=== PATIENT | male | born 1960 | race African-American/Black ===

== ENCOUNTER 2019-08-05 08:10 | Observation (INO) | payer MEDICARE ==
[2019-08-05 08:44] LABS: #Basophils 0.1 thou/uL (0.0-0.2); #Eosinphils 0.2 thou/uL (0.0-0.7); #Lymphocytes 1.7 thou/uL (1.20-3.40); #Monocytes 0.4 thou/uL (0.11-0.59); #Neutrophils 3.6 thou/uL (1.40-6.50); %Basophils 1.1 % (0.0-1.0); %Eosinophils 3.8 % (0.0-10.0); %Lymphocytes 28.9 % (21.0-51.0); %Monocytes 6.8 % (0.0-10.0); %Neutrophils 59.4 % (42.0-75.0); Hemoglobin 14.4 g/dL (14.0-18.0); Mean Corpuscular HGB CONC 31.9 g/dL (32.0-36.0); Mean Corpuscular Hemoglobin 30.2 pg (27.0-31.0); Mean Corpuscular Volume 94.6 fL (78.0-98.0); Mean Platelet Volume 6.1 fL (7.4-10.4); Platelet Count 275 thou/uL (130-400); RBC Distribution Width 13.4 % (11.5-14.5); Red Blood Cell (RBC) Count 4.76 mill/uL (4.70-6.10)
[2019-08-05] MEDS ORDERED: Aspirin Chewable 81 MG TAB ONE (08:50)
--- NOTE | 2019-08-05 08:58 | RAD ---
XR Chest 1 View Portable History: Chest pain Comparison: Radiograph 2018 Findings: Lungs are clear. No pneumothorax. No effusion. Cardiac silhouette and mediastinal contours are similar to the comparison exam. No acute osseous abnormality. Impression: No acute intrathoracic abnormality.
[2019-08-05] MEDS ORDERED: Amlodipine 5 MG TAB ONE (09:06)
[2019-08-05 09:10] LABS: ALT (SGPT) 28 U/L (8-55); AST (SGOT) 29 U/L (5-34); Albumin 4.1 g/dL (3.5-5.0); Alkaline Phosphatase 87 U/L (40-110); Anion Gap 11 mmol/L (10-20); BUN (Urea Nitrogen) 13 mg/dL (8.4-25.7); Bilirubin, Total 0.5 mg/dL (0.2-1.2); CK (CPK) 213 U/L (30-200); Calc. Creatinine Clearance 0 mL/min (70-130); Calcium 9.4 mg/dL (7.8-10.44); Carbon Dioxide 28 mmol/L (22-29); Chloride 104 mmol/L (98-107); Estimated GFR-MDRD Greater than 90; Globulin 2.9 g/dL (2.4-3.5); Glucose 99 mg/dL (70-105); Lipase 46 U/L (8-78); Potassium 4.2 mmol/L (3.5-5.1); Sodium 139 mmol/L (136-145)
[2019-08-05] MEDS ORDERED: Carvedilol 3.125 MG TAB PO SCH (09:30)
[2019-08-05] MEDS ORDERED: Nitroglycerin 0.4 MG TAB 1 EACH ONE ×2 (10:13→10:14)
--- NOTE | 2019-08-05 10:21 | CT ---
Exam: CT angiogram of the chest HISTORY: Chest pain, onset yesterday. COMPARISON: None TECHNIQUE: CT angiogram of the chest is performed in the axial plane. Three-dimensional reformatted i mages are submitted for interpretation FINDINGS: Mediastinum: No mass, lymphadenopathy or hematoma. HEART: Normal size. No significant pericardial fluid. Aorta: Limited evaluation by the absence of adequate oral contrast opacification. Normal caliber aort a. No definite periaortic fat stranding. Upper solid abdominal viscera: No abnormality enhancement. Trachea and central bronchi: Patent Pleural spaces: No effusion Lung parenchyma: No masses or consolidation. Dependent atelectatic changes in both lower lobes. Pneumothorax: None Osseous structures: No lytic or blastic lesions Pulmonary arteries: Adequate contrast opacification pulmonary arterial system to the level of segment al arteries. No filling defect to suggest pulmonary embolism IMPRESSION: 1. No evidence of pulmonary artery embolism to the level of segmental arteries
[2019-08-05] MEDS ORDERED: Nitroglycerin 0.4 MG TAB (25 Tab Bottle) PO PRN (12:08)
[2019-08-05] MEDS ORDERED: hydrALAZINE 20 MG/ML VIAL SLOW IVP PRN (12:10)
[2019-08-05] MEDS ORDERED: Cyclobenzaprine 10 MG TAB PO PRN (12:18)
[2019-08-05 12:22] LABS: Amphetamine Not Detected (NotDetected); Barbiturates Screen Not Detected (NotDetected); Benzodiazepine Screen Not Detected (NotDetected); Cocaine Metabolite Screen Not Detected (NotDetected); Medtox Control Line Valid? VALID (VALID); Medtox Reader # READER 1; Methadone Not Detected (NotDetected); Methamphetamine Not Detected (NotDetected); Opiate Screen Not Detected (NotDetected); Oxycodone Screen Not Detected (NotDetected); Phencyclidine (PCP) Not Detected (NotDetected); THC/Cannabinoid Screen Detected (NotDetected); Tricyclic Screen Not Detected (NotDetected)
[2019-08-05 12:27] LABS: Troponin I 0.032 ng/mL (< 0.028)
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
[2019-08-05] MEDS ORDERED: Iopamidol-370 76% 500 ML 1 ML ONE (13:50)
[2019-08-05 15:03] LABS: Troponin I 0.021 ng/mL (< 0.028)
[2019-08-05 15:31] VITALS: BMI 25.7
--- NOTE | 2019-08-05 15:53 | CON ---
DATE OF CONSULTATION: HISTORY OF PRESENT ILLNESS: The patient is a pleasant 59-year-old gentleman, who presents for evaluation of left-sided chest discomfort. The patient has long history of hypertension. He was recently in [place], [place]. He underwent a cardiac evaluation including a cardiac catheterization at [facility] in [place]. The patient apparently was not found to have significant coronary artery disease. The patient has been on medical therapy. He has continued to have left-sided chest discomfort. This occurs several times a week. It usually lasts up to several minutes. The patient presented to the emergency room with recurrent chest discomfort. The patient denies having any PND or orthopnea. PAST MEDICAL HISTORY: 1. Hypertension. 2. Chronic back pain. PAST SURGICAL HISTORY: Shoulder surgery and abdominal surgery. ALLERGIES: NO KNOWN DRUG ALLERGIES. SOCIAL HISTORY: Long history of continued tobacco abuse. FAMILY HISTORY: There is no strong family history of coronary artery disease. MEDICATIONS: 1. Coreg 3.125 b.i.d. 2. Aspirin 81 daily. 3. Hydrochlorothiazide 25 b.i.d. 4. Gabapentin 300 t.i.d. 5. Norvasc 10 daily. REVIEW OF SYSTEMS: Ten-point system otherwise unremarkable. PHYSICAL EXAMINATION: GENERAL: This is a well-developed gentleman, in no acute distress. VITAL SIGNS: Blood pressure 150/110. NECK: Showed no jugular venous distention. LUNGS: Clear to auscultation. HEART: Regular rate and rhythm. Normal S1 and S2. No murmurs. ABDOMEN: Nondistended. EXTREMITIES: Show no edema. VASCULAR: Radial pulses are 2+. LABORATORY RESULTS: White blood cell count 6.0, hemoglobin 14.4, hematocrit 45.0, and platelets 275. Sodium 142, potassium 4.2, chloride 104, bicarbonate 28, BUN 13, and creatinine 0.98. CPK was 213. Troponin 0.022. IMAGING DATA: EKG revealed normal sinus rhythm with left ventricular hypertrophy, nonspecific T-wave abnormality. IMPRESSION: 1. Hypertensive crisis. 2. Chronic back pain. 3. Tobacco abuse. PLAN: This gentleman presents with a hypertensive crisis. His blood pressure is markedly elevated. He states he has been compliant with his medications. I would recommend switching him from Norvasc to Nifedipine. We will obtain records from his previous catheterization to make sure that he had no evidence of significant coronary artery disease. The patient has been highly advised to discontinue smoking. We will follow this patient with you through his hospitalization. Job ID: [id number] MTDD
[2019-08-05] MEDS ORDERED: NIFEdipine XL 30 MG TAB PO SCH (16:00)
[2019-08-05] MEDS: Gabapentin 300 MG CAP PO SCH ×2 (16:40→20:31)
[2019-08-05] MEDS: Carvedilol 3.125 MG TAB PO SCH (16:41)
[2019-08-05] MEDS: Nicotine 14 MG PATCH TD SCH (16:42)
[2019-08-06] MEDS: Morphine 2 MG/ML SYRINGE SLOW IVP PRN ×2 (01:25→06:48)
[2019-08-06] MEDS: Gabapentin 300 MG CAP PO SCH ×2 (08:59→16:22)
[2019-08-06] MEDS: Carvedilol 3.125 MG TAB PO SCH ×2 (08:59→16:22)
[2019-08-06] MEDS ORDERED: NIFEdipine XL 30 MG TAB PO SCH ×2 (09:00→16:00)
[2019-08-06] MEDS ORDERED: Amlodipine 10 MG TAB PO SCH (09:00)
[2019-08-06] MEDS ORDERED: Hydrochlorothiazide 25 MG TAB PO SCH (09:00)
[2019-08-06] MEDS ORDERED: Aspirin 81 mg Enteric Coated Tablet PO SCH (09:00)
[2019-08-06] MEDS ORDERED: Aspirin 325 mg Enteric Coated Tablet PO SCH (09:00)
[2019-08-06] MEDS ORDERED: diphenhydrAMINE 50 MG/ML VIAL IVP PRN (09:19)
[2019-08-06 11:52] VITALS: BP 165/95; TEMP 98.2
[2019-08-06] MEDS: traMADol HCl 50 MG TAB PO PRN ×2 (11:52→16:41)
--- NOTE | 2019-08-06 15:24 | PDOC.HOSPP ---
- Subjective Encounter Date: 08/06/19 Encounter Time: 15:23 Subjective: Pt seen for followup re: chest pain. Feels slightly better today. - Objective Vital Signs & Weight: Vital Signs (12 hours) Temp Pulse Resp BP BP Pulse Ox 08/06/19 11:51 98.2 F 91 16 165/95 H 95 08/06/19 09:37 77 152/97 H 08/06/19 07:40 98.4 F 77 16 152/97 H 98 08/06/19 06:03 97.9 F 83 16 141/94 H 97 Weight Weight 179 lb 9 oz I&O: 08/05/19 08/06/19 08/07/19 06:59 06:59 06:59 Intake Total 960 720 Balance 960 720 Result Diagrams: 08/05/19 08:34 08/05/19 08:34 Additional Labs: Labs and MARs reviewed by me EKG Reviewed by me: Yes (Tele; NSR) Hospitalist ROS - Review of Systems Constitutional: denies: fever, chills, sweats, weakness, malaise Respiratory: denies: cough, shortness of breath, SOB with excertion, pleuritic pain, wheezing Cardiovascular: reports: chest pain. denies: palpitations, orthopnea, paroxysmal noc. dyspnea, edema, light headedness Gastrointestinal: denies: nausea, vomiting, abdominal pain, diarrhea, constipation, melena, hematochezia Genitourinary: denies: dysuria, frequency, incontinence, hematuria, retention Musculoskeletal: reports: other (right hip pain) Skin: denies: rash, lesions, alfreda, bruising - Medication Medications: Active Medications Generic Name Dose Route Start Last Admin Trade Name Robertq PRN Reason Stop Dose Admin Aspirin 81 mg 08/06/19 09:00 08/06/19 08:59 Ecotrin PO 81 mg DAILY RADHA Administration Carvedilol 3.125 mg 08/05/19 17:00 08/06/19 08:59 Coreg PO 3.125 mg BID-WM RADHA Administration Gabapentin 300 mg 08/05/19 15:00 08/06/19 08:59 Neurontin PO 300 mg TID RADHA Administration Hydrochlorothiazide 25 mg 08/06/19 09:00 08/06/19 08:59 Hydrochlorothiazide PO 25 mg DAILY RADHA Administration Morphine Sulfate 2 mg 08/05/19 12:10 08/06/19 06:48 Morphine SLOW IVP 2 mg Q4H PRN Administration Pain Nicotine 14 mg 08/05/19 17:00 08/05/19 16:42 Nicoderm Patch TD Not Given Q24HR RADHA Nifedipine 60 mg 08/06/19 09:00 08/06/19 09:37 Procardia Xl PO 60 mg DAILY RADHA Administration Tramadol HCl 50 mg 08/05/19 12:19 08/06/19 11:52 Ultram PO 50 mg Q6H PRN Administration Pain - Exam General Appearance: awake alert Eye: anicteric sclera ENT: moist mucosa Neck: supple, symmetric, no thyromegaly, no lymphadenopathy Heart: RRR, no gallops, no rubs, normal peripheral pulses Respiratory: CTAB, no wheezes, no rales, no ronchi, normal chest expansion Gastrointestinal: soft, non-tender, non-distended, normal bowel sounds Extremities: no cyanosis Psychiatric: normal affect, normal behavior, oriented to person, oriented to place, oriented to time Hosp A/P (1) Chest pain Code(s): R07.9 - CHEST PAIN, UNSPECIFIED Status: Acute (2) HTN (hypertension) Code(s): I10 - ESSENTIAL (PRIMARY) HYPERTENSION Status: Chronic (3) Hip pain Code(s): M25.559 - PAIN IN UNSPECIFIED HIP Status: Chronic (4) Chronic back pain Code(s): M54.9 - DORSALGIA, UNSPECIFIED; G89.29 - OTHER CHRONIC PAIN Status: Chronic - Plan Await medical records from prior hospitalization. Continue pain medications. Procardia dose increased to 60 mg daily. Monitor vital signs, titrate antihypertensives as needed.
[2019-08-06] MEDS: Nicotine 14 MG PATCH TD SCH (16:43)
--- NOTE | 2019-08-06 20:59 | DIS ---
DATE OF ADMISSION: 08/05/2019 DATE OF DISCHARGE: 08/06/2019 PRIMARY CARE PROVIDER: Dr. Lisa Braga in [place], [place]. DISCHARGE DIAGNOSES: 1. Hypertensive urgency. 2. Chest pain, etiology unclear. 3. Tobacco abuse. 4. Marijuana use. 5. History of nonischemic dilated cardiomyopathy. CONDITION OF PATIENT ON THE DAY OF DISCHARGE: Stable. I assessed Mr. Leiva on the day of discharge. Please refer to my hospitalist progress note for further details regarding this [id number] encounter. CONSULTATIONS DURING THIS HOSPITALIZATION: Cardiology, Dr. Larsen. POST-ACUTE CARE FOLLOWUP: He is advised to follow up with primary care provider in 3 days and with audio visual facilities engineer in 1 week. DISCHARGE MEDICATIONS: 1. Nifedipine 60 mg daily. 2. Amlodipine was discontinued. 3. Aspirin 81 mg daily. 4. Coreg 3.125 mg 2 times a day. 5. Gabapentin 300 mg 3 times a day. 6. Hydrochlorothiazide 12.5 mg as directed. 7. Nicotine 14 mg patch daily. 8. Tylenol p.r.n. 9. Tramadol p.r.n. 10. Ibuprofen p.r.n. 11. Flexeril p.r.n. Please note that he has allergy to BRENDA inhibitors and ARBS, according to medical records. HOSPITAL COURSE: Mr. Leiva is a pleasant 59-year-old gentleman, who was admitted to [facility] on 08/05/2019, for chest pain and hypertensive urgency. Blood pressure improved after starting him on antihypertensives. Medical records were obtained from prior hospitalization, which indicate that he has a history of nonischemic dilated cardiomyopathy and chronically elevated troponins. He has been cleared for discharge by Cardiology Service. He has been advised to follow up with his audio visual facilities engineer as well as primary care provider for further management. He has been advised to stop tobacco and marijuana use. Many thanks for allowing me to participate in your patient's care. Please feel free to contact me with any questions or concerns. DIET: Heart healthy. ACTIVITY: As tolerated. DISCHARGE DESTINATION: Home. Job ID: [id number]
== END 2019-08-06 19:00 | disposition home or self-care (01) ==
LOC: ERS 08:10 → ERHOLD 11:37 → 2SW 15:38
PROVIDERS: ADMIT Internal Medicine; ATTEND Internal Medicine
DX: I16.0 Hypertensive urgency (principal); I10 Essential (primary) hypertension; R07.89 Other chest pain; F17.210 Nicotine dependence, cigarettes, uncomplicated; I42.0 Dilated cardiomyopathy; I25.2 Old myocardial infarction; I25.10 Atherosclerotic heart disease of native coronary artery without angina pectoris; G89.29 Other chronic pain; M54.9 Dorsalgia, unspecified; M25.552 Pain in left hip; Z79.82 Long term (current) use of aspirin; Z79.899 Other long term (current) drug therapy
CPT/HCPCS: 71045; 71275; 80053; 80306; 82550; 83690; 84484 ×2; 85025; 93005; 94760; 96374; 96376; 99285; G0378 ×3; 36415; J2270; Q9967

== ENCOUNTER 2019-08-13 10:56 | Emergency (ER) | payer MEDICARE ==
--- NOTE | 2019-08-13 11:58 | RAD ---
Portable frontal chest radiograph: 08/13/2019 COMPARISON: 08/05/2019 HISTORY: Chest pain FINDINGS: Heart and mediastinal contours are stable. Round and curvilinear radiopaque densities project over the medial aspect of the left upper quadrant, presumably on the basis of material/structures external to the patient. No pneumothorax or pleural fluid. No focal consolidation or alveolar edema. There is prominent degenerative change involving the right glenohumeral joint IMPRESSION: No focal consolidation or alveolar edema. Please see above discussion.
[2019-08-13 12:11] LABS: #Basophils 0.1 thou/uL (0.0-0.2); #Eosinphils 0.3 thou/uL (0.0-0.7); #Lymphocytes 1.9 thou/uL (1.20-3.40); #Monocytes 0.4 thou/uL (0.11-0.59); #Neutrophils 3.6 thou/uL (1.40-6.50); %Basophils 0.8 % (0.0-1.0); %Eosinophils 4.7 % (0.0-10.0); %Lymphocytes 29.5 % (21.0-51.0); %Monocytes 6.9 % (0.0-10.0); Hemoglobin 14.6 g/dL (14.0-18.0); Mean Corpuscular HGB CONC 31.5 g/dL (32.0-36.0); Mean Corpuscular Hemoglobin 29.3 pg (27.0-31.0); Mean Corpuscular Volume 93.1 fL (78.0-98.0); Mean Platelet Volume 6.3 fL (7.4-10.4); Platelet Count 295 thou/uL (130-400); RBC Distribution Width 12.9 % (11.5-14.5); Red Blood Cell (RBC) Count 4.98 mill/uL (4.70-6.10); White Blood Cell (WBC) Count 6.3 thou/uL (4.8-10.8)
[2019-08-13 12:43] LABS: ALT (SGPT) 24 U/L (8-55); AST (SGOT) 24 U/L (5-34); Albumin 4.5 g/dL (3.5-5.0); Alkaline Phosphatase 109 U/L (40-110); Anion Gap 14 mmol/L (10-20); BUN (Urea Nitrogen) 15 mg/dL (8.4-25.7); Bilirubin, Total 0.4 mg/dL (0.2-1.2); CK (CPK) 299 U/L (30-200); Calc. Creatinine Clearance 0 mL/min (70-130); Calcium 9.7 mg/dL (7.8-10.44); Carbon Dioxide 24 mmol/L (22-29); Chloride 106 mmol/L (98-107); Estimated GFR-MDRD Greater than 90; Globulin 3.4 g/dL (2.4-3.5); Glucose 95 mg/dL (70-105); Lipase 53 U/L (8-78); Potassium 4.3 mmol/L (3.5-5.1); Protein, Total 7.9 g/dL (6.0-8.3); Sodium 140 mmol/L (136-145)
== END 2019-08-13 17:13 | disposition home or self-care (01) ==
LOC: ERS 10:56
DX: R07.89 Other chest pain (principal); I25.10 Atherosclerotic heart disease of native coronary artery without angina pectoris; F17.210 Nicotine dependence, cigarettes, uncomplicated; I25.2 Old myocardial infarction; I10 Essential (primary) hypertension; Z79.82 Long term (current) use of aspirin; Z79.899 Other long term (current) drug therapy
CPT/HCPCS: 36415; 71045; 80053; 82550; 83690; 83880; 84484; 85025; 93005; 94760